=== PATIENT | male | born 1955 | race Caucasian/White ===

== ENCOUNTER 2023-04-28 18:40 | Inpatient (IN) | payer OTHER ==
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
[2023-04-28] MEDS ORDERED: LABETALOL 5 MG/ML VIAL MDV IVP STA ×2 (19:26→20:50)
[2023-04-28] MEDS ORDERED: SODIUM CHLORIDE 0.9% 500 ML 500 ML IV STA (19:26)
[2023-04-28] MEDS ORDERED: MORPHINE SULFATE 4 MG/ML SYRINGE IV STA (19:26)
[2023-04-28 20:03] LABS: Basophils # (A) 0.1 k/uL (0-0.2); Basophils % (A) 1 %; Eosinophils # (A) 0.2 k/uL (0-0.7); Eosinophils % (A) 2 %; HCT 44.1 % (39.0-53.0); HGB 14.7 gm/dL (13.0-17.5); Lymphocytes # (A) 1.7 k/uL (1.0-4.8); Lymphocytes % (A) 17 %; MCH 31.5 pg (25.0-35.0); MCHC 33.3 g/dL (31.0-37.0); MCV 94.5 fL (80.0-100.0); Mean Platelet Volume 8.1; Monocytes # (A) 0.6 k/uL (0-1.0); Monocytes % (A) 6 %; Neutrophils # (A) 7.3 k/uL (1.3-7.7); Neutrophils % (A) 73 %; Platelet Count 192 k/uL (150-450); RBC 4.66 m/uL (4.30-5.90)
[2023-04-28 20:14] LABS: ALT 23 U/L (4-49); AST 24 U/L (17-59); African American GFR (CKD) 17 (>60 ml/min/1.73 sqM); Albumin 4.3 g/dL (3.5-5.0); Alkaline Phosphatase 72 U/L (38-126); Anion Gap 13 mmol/L; Blood Urea Nitrogen 39 mg/dL (9-20); Calcium 9.4 mg/dL (8.4-10.2); Carbon Dioxide 21 mmol/L (22-30); Chloride 105 mmol/L (98-107); Glucose 87 mg/dL (74-99); Magnesium 2.3 mg/dL (1.6-2.3); Non-African American GFR(CKD) 15 (>60 ml/min/1.73 sqM); Phosphorus 3.3 mg/dL (2.5-4.5); Potassium 4.4 mmol/L (3.5-5.1); Sodium 139 mmol/L (137-145); Total Bilirubin 1.2 mg/dL (0.2-1.3); Total Protein 7.3 g/dL (6.3-8.2)
[2023-04-28 20:20] LABS: INR 0.9 (<1.2); Partial Thromboplastin Time 24.1 sec (22.0-30.0); Prothrombin Time 9.9 sec (10.0-12.5)
[2023-04-28 20:23] LABS: NT-Pro-B-Type Natriuretic Pept 1210 pg/mL
[2023-04-28] MEDS ORDERED: lisinopriL 10 MG TAB PO STA (20:50)
[2023-04-28] MEDS ORDERED: NALOXONE 0.4 MG/ML 1 ML VIAL IV PRN (20:51)
[2023-04-28] MEDS ORDERED: MORPHINE SULFATE 4 MG/ML SYRINGE IV PRN (20:51)
[2023-04-28] MEDS ORDERED: ONDANSETRON 4 MG/2 ML VIAL IVP PRN (20:51)
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
[2023-04-28] MEDS: SODIUM CHLORIDE 0.9% 1,000 ML IV SCH (21:19)
[2023-04-28] MEDS: METOPROLOL TARTRATE 50 MG TAB PO SCH (21:26)
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
[2023-04-28] MEDS ORDERED: hydrALAZINE HCL 20 MG/ML 1 ML VIAL IVP PRN (22:50)
[2023-04-29 00:25] LABS: Glucose,Whole Blood 82 mg/dL (70-110)
[2023-04-29] MEDS: METOPROLOL TARTRATE 50 MG TAB PO SCH ×2 (08:17→21:29)
[2023-04-29] MEDS ORDERED: lisinopriL 10 MG TAB PO SCH (09:00)
[2023-04-29] MEDS ORDERED: ACETAMINOPHEN TAB 325 MG TAB PO PRN (09:45)
[2023-04-29] MEDS ORDERED: MELATONIN 3 MG TABLET PO PRN (09:45)
[2023-04-29 10:47] LABS: Basophils % (A) 0 %; Eosinophils # (A) 0.4 k/uL (0-0.7); Eosinophils % (A) 4 %; HCT 40.9 % (39.0-53.0); HGB 13.4 gm/dL (13.0-17.5); Lymphocytes # (A) 1.7 k/uL (1.0-4.8); Lymphocytes % (A) 19 %; MCH 31.6 pg (25.0-35.0); MCHC 32.8 g/dL (31.0-37.0); MCV 96.4 fL (80.0-100.0); Mean Platelet Volume 7.9; Monocytes # (A) 0.6 k/uL (0-1.0); Monocytes % (A) 7 %; Neutrophils # (A) 6.2 k/uL (1.3-7.7); Neutrophils % (A) 68 %; Platelet Count 176 k/uL (150-450); RBC 4.24 m/uL (4.30-5.90); RDW 13.1 % (11.5-15.5); WBC 9.1 k/uL (3.8-10.6)
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
[2023-04-29 10:55] LABS: ALT 20 U/L (4-49); AST 20 U/L (17-59); African American GFR (CKD) 20 (>60 ml/min/1.73 sqM); Albumin 3.6 g/dL (3.5-5.0); Alkaline Phosphatase 62 U/L (38-126); Anion Gap 11 mmol/L; Blood Urea Nitrogen 40 mg/dL (9-20); Calcium 8.4 mg/dL (8.4-10.2); Carbon Dioxide 19 mmol/L (22-30); Chloride 106 mmol/L (98-107); Glucose 150 mg/dL (74-99); Magnesium 2.2 mg/dL (1.6-2.3); Non-African American GFR(CKD) 17 (>60 ml/min/1.73 sqM); Phosphorus 3.8 mg/dL (2.5-4.5); Potassium 3.9 mmol/L (3.5-5.1); Sodium 136 mmol/L (137-145); Total Bilirubin 0.8 mg/dL (0.2-1.3); Total Protein 6.4 g/dL (6.3-8.2)
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
[2023-04-29] MEDS: SODIUM CHLORIDE 0.9% 1,000 ML IV SCH ×2 (18:33→21:29)
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
[2023-04-29 18:55] LABS: Appearance,Urine Clear (Clear); Bilirubin,Urine Negative (Negative); Blood,Urine Negative (Negative); Color,Urine Colorless; Glucose,Urine (UA) 1+ (Negative); Ketones,Urine Negative (Negative); Leukocyte Esterase,Urine Negative (Negative); Nitrite,Urine Negative (Negative); Protein,Urine 1+ (Negative); RBC,Urine <1 /hpf (0-5); Specific Gravity,Urine 1.009 (1.001-1.035); Urobilinogen,Urine <2.0 mg/dL (<2.0); WBC,Urine <1 /hpf (0-5)
[2023-04-29 21:37] LABS: Glucose,Whole Blood 120 mg/dL (70-110)
[2023-04-30 05:51] LABS: Glucose,Whole Blood 99 mg/dL (70-110)
[2023-04-30 08:19] LABS: HCT 38.8 % (39.0-53.0); HGB 13.3 gm/dL (13.0-17.5); MCH 32.6 pg (25.0-35.0); MCHC 34.2 g/dL (31.0-37.0); MCV 95.5 fL (80.0-100.0); Mean Platelet Volume 8.2; Platelet Count 164 k/uL (150-450); RBC 4.06 m/uL (4.30-5.90); WBC 10.6 k/uL (3.8-10.6)
[2023-04-30] MEDS: METOPROLOL TARTRATE 50 MG TAB PO SCH (09:28)
[2023-04-30] MEDS: CHOLECALCIFEROL 25 MCG (1000 IU) TABLET PO SCH (09:28)
[2023-04-30] MEDS: ASPIRIN 81 MG PO SCH (09:28)
[2023-04-30] MEDS: MAGNESIUM OXIDE 400 MG TAB PO SCH (09:28)
[2023-04-30] MEDS: SODIUM CHLORIDE 0.9% 1,000 ML IV SCH ×2 (09:38→20:18)
[2023-04-30 10:42] LABS: African American GFR (CKD) 18 (>60 ml/min/1.73 sqM); Anion Gap 11 mmol/L; Blood Urea Nitrogen 40 mg/dL (9-20); Calcium 8.5 mg/dL (8.4-10.2); Carbon Dioxide 19 mmol/L (22-30); Chloride 108 mmol/L (98-107); Glucose 93 mg/dL (74-99); Non-African American GFR(CKD) 16 (>60 ml/min/1.73 sqM); Potassium 4.2 mmol/L (3.5-5.1); Sodium 138 mmol/L (137-145)
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
[2023-04-30 11:56] LABS: Glucose,Whole Blood 99 mg/dL (70-110)
--- NOTE | 2023-04-30 12:10 | CA ---
Transthoracic Echo Report Name: Aren Mckinney Age: 68 Gender: M : 1955 Exam Date: 04/29/2023 09:26 Exam Location: [facility] Ht (in): 70 Wt (lb): 200 Ordering Physician: Asher Patel DO Attending/Referring Phys: [id number], Jorge Careers Counsellor Zabrina Dunbar RDCS Procedure CPT: Indications: chf Cardiac Hx: Technical Quality: Fair Contrast 1: Total Dose (mL): Contrast 2: Total Dose (mL): MEASUREMENTS (Male / Female) Normal Values 2D ECHO LV Diastolic Diameter PLAX 4.4 cm 4.2 - 5.9 / 3.9 - 5.3 cm LV Systolic Diameter PLAX 2.9 cm IVS Diastolic Thickness 1.7 cm 0.6 - 1.0 / 0.6 - 0.9 cm LVPW Diastolic Thickness 1.5 cm 0.6 - 1.0 / 0.6 - 0.9 cm LV Relative Wall Thickness 0.7 RV Internal Dim ED PLAX 3.0 cm LA Volume 84.5 cm??? 18 - 58 / 22 - 52 cm??? LA Volume Index 39.6 cm???/m??? 16 - 28 cm???/m??? M-MODE Aortic Root Diameter MM 3.0 cm LA Systolic Diameter MM 5.3 cm LA Ao Ratio MM 1.8 AV Cusp Separation MM 1.8 cm DOPPLER AV Peak Velocity 115.3 cm/s AV Peak Gradient 5.3 mmHg AV Mean Velocity 85.8 cm/s AV Mean Gradient 3.3 mmHg AV Velocity Time Integral 21.2 cm LVOT Peak Velocity 105.4 cm/s LVOT Peak Gradient 4.4 mmHg LVOT Velocity Time Integral 19.1 cm MV Area PHT 4.0 cm??? Mitral E Point Velocity 96.7 cm/s Mitral A Point Velocity 80.0 cm/s Mitral E to A Ratio 1.2 MV Deceleration Time 191.9 ms MV E' Velocity 6.6 cm/s Mitral E to MV E' Ratio 14.7 TR Peak Velocity 189.3 cm/s TR Peak Gradient 14.3 mmHg Right Ventricular Systolic Press 18.7 mmHg FINDINGS Left Ventricle Moderately increased left ventricular wall thickness. Left ventricular cavity size normal. Normal left ventricular systolic function with no obvious regional wall motion abnormalities. Left ventricular ejection fraction is estimated at 55-60 %. Right Ventricle Normal right ventricular size and function. Right ventricular systolic pressure within normal limits. Right Atrium Normal right atrial size. Left Atrium Moderate left atrial dilatation Mitral Valve Structurally normal mitral valve. No mitral stenosis. Mild mitral regurgitation. Aortic Valve Trileaflet aortic valve. No aortic regurgitation. Thickened aortic valve without stenosis. Focal thickening of the aortic valve cusps. Tricuspid Valve Structurally normal tricuspid valve. Mild tricuspid regurgitation. Pulmonic Valve Structurally normal pulmonic valve. Trace pulmonic regurgitation. Pericardium No pericardial effusion. Aorta Normal size aortic root and proximal ascending aorta. CONCLUSIONS Left ventricular ejection fraction is estimated at 55-60 %. no obvious regional wall motion abnormalities. Moderately increased left ventricular wall thickness. Moderate left atrial dilatation Mild mitral regurgitation. Calcific Aortic sclerosis with thickened valve with no stenosis No prior echo within database to compare with Previewed by: Dr Blake Wiley (Electronically Signed) Final Date: 30 April 2023 12:09
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
--- NOTE | 2023-04-30 12:59 | XR ---
EXAMINATION TYPE: XR chest 2V DATE OF EXAM: 04/30/2023 12:55 PM CLINICAL INDICATION:Male, 68 years old with history of Shortness of breath; PHH COMPARISON: Chest radiographs from 04/28/2023 TECHNIQUE: XR chest 2V Frontal and lateral views of the chest. FINDINGS: Lungs/Pleura: There is no evidence of pleural effusion, focal consolidation, or pneumothorax. Pulmonary vascularity: Pulmonary vascular congestion. Heart/mediastinum: Cardiomediastinal silhouette is enlarged and stable. Musculoskeletal: No acute osseous pathology. IMPRESSION: Cardiomegaly and mild pulmonary vascular congestion. Correlate with BNP for congestive heart failure.
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
[2023-04-30 17:05] LABS: Glucose,Whole Blood 98 mg/dL (70-110)
[2023-04-30] MEDS: amLODIPine 5 MG TAB PO SCH (17:06)
[2023-04-30] MEDS: carvediloL 12.5 MG TAB PO SCH (17:06)
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
[2023-04-30 20:43] LABS: Glucose,Whole Blood 100 mg/dL (70-110)
[2023-05-01] MEDS: carvediloL 12.5 MG TAB PO SCH ×2 (06:14→17:00)
[2023-05-01 06:19] LABS: Glucose,Whole Blood 90 mg/dL (70-110)
[2023-05-01 08:23] LABS: HCT 40.9 % (39.0-53.0); HGB 13.5 gm/dL (13.0-17.5); MCH 31.2 pg (25.0-35.0); MCHC 32.9 g/dL (31.0-37.0); MCV 94.9 fL (80.0-100.0); Platelet Count 162 k/uL (150-450); RBC 4.31 m/uL (4.30-5.90); RDW 13.4 % (11.5-15.5); WBC 12.4 k/uL (3.8-10.6)
[2023-05-01 08:56] LABS: African American GFR (CKD) 20 (>60 ml/min/1.73 sqM); Anion Gap 13 mmol/L; Blood Urea Nitrogen 38 mg/dL (9-20); Carbon Dioxide 14 mmol/L (22-30); Chloride 108 mmol/L (98-107); Glucose 113 mg/dL (74-99); Non-African American GFR(CKD) 17 (>60 ml/min/1.73 sqM); Sodium 135 mmol/L (137-145)
[2023-05-01 08:59] LABS: Potassium 4.4 mmol/L (3.5-5.1)
[2023-05-01] MEDS: ASPIRIN 81 MG PO SCH (09:06)
[2023-05-01] MEDS: MAGNESIUM OXIDE 400 MG TAB PO SCH (09:06)
[2023-05-01] MEDS: CHOLECALCIFEROL 25 MCG (1000 IU) TABLET PO SCH (09:06)
[2023-05-01] MEDS: amLODIPine 5 MG TAB PO SCH ×2 (09:06→20:36)
[2023-05-01 11:18] LABS: Glucose,Whole Blood 112 mg/dL (70-110)
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
[2023-05-01] MEDS: FUROSEMIDE 10 MG/ML 4 ML VIAL IV STA ×2 (12:08→14:34)
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
[2023-05-01] MEDS ORDERED: FUROSEMIDE 10 MG/ML 4 ML VIAL ONE (14:33)
[2023-05-01 16:53] LABS: Glucose,Whole Blood 102 mg/dL (70-110)
[2023-05-01 20:12] LABS: Glucose,Whole Blood 102 mg/dL (70-110)
[2023-05-01] MEDS: SODIUM BICARBONATE TAB 650 MG TAB PO SCH (20:36)
[2023-05-02 06:06] LABS: Glucose,Whole Blood 128 mg/dL (70-110)
[2023-05-02] MEDS: carvediloL 12.5 MG TAB PO SCH (06:19)
[2023-05-02 08:38] VITALS: PULSE 72
[2023-05-02 08:58] LABS: HCT 41.2 % (39.0-53.0); HGB 14.1 gm/dL (13.0-17.5); MCH 32.1 pg (25.0-35.0); MCHC 34.2 g/dL (31.0-37.0); MCV 93.9 fL (80.0-100.0); Mean Platelet Volume 8.6; Platelet Count 167 k/uL (150-450); RBC 4.39 m/uL (4.30-5.90); RDW 13.3 % (11.5-15.5); WBC 9.9 k/uL (3.8-10.6)
[2023-05-02] MEDS: MAGNESIUM OXIDE 400 MG TAB PO SCH (09:09)
[2023-05-02] MEDS: SODIUM BICARBONATE TAB 650 MG TAB PO SCH (09:09)
[2023-05-02] MEDS: amLODIPine 5 MG TAB PO SCH (09:09)
[2023-05-02] MEDS: CHOLECALCIFEROL 25 MCG (1000 IU) TABLET PO SCH (09:09)
[2023-05-02] MEDS: ASPIRIN 81 MG PO SCH (09:09)
[2023-05-02 09:13] LABS: African American GFR (CKD) 18 (>60 ml/min/1.73 sqM); Anion Gap 13 mmol/L; Blood Urea Nitrogen 47 mg/dL (9-20); Carbon Dioxide 20 mmol/L (22-30); Chloride 105 mmol/L (98-107); Glucose 115 mg/dL (74-99); Non-African American GFR(CKD) 15 (>60 ml/min/1.73 sqM); Potassium 3.9 mmol/L (3.5-5.1); Sodium 138 mmol/L (137-145)
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
[2023-05-02 11:41] LABS: Glucose,Whole Blood 92 mg/dL (70-110)
[2023-05-02 11:57] VITALS: BP 163/101; RESP 16; TEMP 98.2
== END 2023-05-02 13:47 | disposition home or self-care (01) | DRG 683 ==
LOC: EC 18:40 → 3SCARD 20:51
PROVIDERS: ADMIT Hospitalist; ATTEND Hospitalist
DX: N17.9 Acute kidney failure, unspecified (principal); E87.20 Acidosis, unspecified; I16.1 Hypertensive emergency; I13.0 Hypertensive heart and chronic kidney disease with heart failure and stage 1 through stage 4 chronic kidney disease, or unspecified chronic kidney disease; I50.9 Heart failure, unspecified; M54.9 Dorsalgia, unspecified; N18.9 Chronic kidney disease, unspecified; Z79.82 Long term (current) use of aspirin; S09.90XA Unspecified injury of head, initial encounter; R07.89 Other chest pain; M25.519 Pain in unspecified shoulder; V47.6XXA Car passenger injured in collision with fixed or stationary object in traffic accident, initial encounter; Z28.310 Unvaccinated for COVID-19; Z28.21 Immunization not carried out because of patient refusal; Z98.61 Coronary angioplasty status
CPT/HCPCS: 36415; 70450; 71045; 71046; 72125; 76770; 80048; 80053; 81001; 83036; 83605; 83735; 83880; 84100; 84484; 85025; 85027; 85610; 85730; 93306; 94760; 96361; 96374; 96375; 96376; 99291

== ENCOUNTER → 2023-05-12 | Outpatient (CLI) | payer OTHER ==
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
== END | disposition home or self-care (01) ==
LOC: RADUSWWP 16:23
PROVIDERS: ATTEND Emergency Medicine
DX: S80.12XA Contusion of left lower leg, initial encounter (principal); X58.XXXA Exposure to other specified factors, initial encounter

== ENCOUNTER → 2023-05-29 | Outpatient (CLI) | payer OTHER ==
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
== END | disposition home or self-care (01) ==
LOC: RADMRIMAIN 20:45
PROVIDERS: ATTEND Emergency Medicine
DX: F07.81 Postconcussional syndrome (principal); S13.4XXA Sprain of ligaments of cervical spine, initial encounter; S80.12XA Contusion of left lower leg, initial encounter; G93.89 Other specified disorders of brain; M50.30 Other cervical disc degeneration, unspecified cervical region; M47.812 Spondylosis without myelopathy or radiculopathy, cervical region; R13.10 Dysphagia, unspecified; V89.2XXA Person injured in unspecified motor-vehicle accident, traffic, initial encounter
CPT/HCPCS: 70551; 72141

== ENCOUNTER → 2023-06-13 | Outpatient (CLI) | payer OTHER, MEDICARE ==
[2023-06-14 02:12] LABS: HCT 42.9 % (39.6-50.0); MCH 30.8 pg (27.0-32.0); MCHC 32.6 g/dL (32.0-37.0); MCV 94.5 FL (80.0-97.0); Mean Platelet Volume 10.2 FL (9.5-12.2); NRBC Per 100 WBC 0 X 10*3/uL (0.00-0.01); Platelet Count 228 X 10*3/uL (140-440); RBC 4.54 X 10*6/uL (4.40-5.60); RDW 12.7 % (11.5-14.5); WBC 8.31 X 10*3/uL (4.50-10.00)
[2023-06-14 02:28] LABS: Albumin 4.6 g/dL (3.8-4.9); Immunoglobulin M 67.6 mg/dL (40.0-280.0); Protein, Total 7.4 g/dL (6.2-8.2)
[2023-06-14 02:30] LABS: Hepatitis A Antibody IgM Nonreactive; Hepatitis B Core IgM Nonreactive; Hepatitis B Surface Antigen Nonreactive; Hepatitis C IgG Antibody Nonreactive
[2023-06-14 02:57] LABS: % Iron Saturation 20.62 (15.00-50.00); BUN/Creat Ratio 12.59 Ratio (12.00-20.00); Blood Urea Nitrogen 51.6 mg/dL (9.0-27.0); Carbon Dioxide 20.7 mmol/L (21.6-31.8); Chloride 104 mmol/L (96-109); Glucose 98 mg/dL (70-110); Iron 67 UG/DL (65-175); Magnesium 2.3 mg/dL (1.5-2.4); Phosphorus 4.8 mg/dL (2.4-5.1); Potassium 5.1 mmol/L (3.5-5.5); Sodium 141 mmol/L (135-145); Total Iron Binding Capacity 325 UG/DL (228-460)
[2023-06-14 14:10] LABS: Free Kappa Lt Chain Qnt, Serum 8.11 mg/dL (0.33-1.94)
[2023-06-14 17:01] LABS: Gamma Globulin 1.06 g/dL (0.70-1.50)
== END | disposition home or self-care (01) ==
LOC: LABWHC1 15:38
PROVIDERS: ATTEND Family Medicine
DX: N25.81 Secondary hyperparathyroidism of renal origin (principal); N17.9 Acute kidney failure, unspecified; E55.9 Vitamin D deficiency, unspecified; D64.9 Anemia, unspecified; N39.0 Urinary tract infection, site not specified; R80.9 Proteinuria, unspecified; R53.83 Other fatigue
CPT/HCPCS: 36415; 80048; 80074; 82306; 82728; 83516; 83540; 83550; 83735; 83883; 83970; 84100; 84165; 84443; 85027; 86038; 86160; 86162; 86225; 86255; 86334

== ENCOUNTER → 2024-04-25 | Outpatient (CLI) | payer MEDICARE ==
--- NOTE | 2024-04-25 11:27 | MR ---
EXAMINATION TYPE: MR lumbar spine wo con DATE OF EXAM: 04/25/2024 COMPARISON: NONE HISTORY: Left leg pain/weakness TECHNIQUE: T1 and T2 axial and sagittal images of the lumbar spine are submitted. FINDINGS: There is no abnormal signal seen within the visualized spinal cord or paraspinal soft tissu es. At L1-2 there is disc desiccation. Mild circumferential disc bulging but no focal herniation or canal stenosis. Neural foramina remain patent. Mild degenerative disc disease. At L2-3 there is mild degenerative disc disease with circumferential disc bulging greater laterally t o the left with mild left foraminal encroachment. Lateral small protrusion not excluded. No canal gladis nosis. At L3-4 there is mild degenerative disc disease with diffuse disc bulging. Hypertrophy of the facet j oints. Borderline central stenosis with mild bilateral foraminal encroachment greater on the left. Gr carie 1 retrolisthesis. At L4-5 there is degenerative disc disease. There is broad-based disc protrusion. Mild effacement of thecal sac. Hypertrophy of the facet joints and ligamentum flavum contribute to borderline to mild ce ntral stenosis and mild bilateral foraminal encroachment. At L5-S1 there is severe degenerative disc disease with grade 1 retrolisthesis. There is no disc boris iation or canal stenosis. Posterior disc osteophyte complex with mild bilateral foraminal protrusion. IMPRESSION: 1. Multilevel degenerative disc disease with severe changes L5-S1 resulting in mild bilateral foramin al encroachment. Broad-based posterior disc osteophyte complex. 2. Broad-based disc protrusion at L4-L5 with borderline to mild central stenosis and mild bilateral f oraminal quadrant. 3. Borderline Central stenosis L3-L4 due to disc bulging and grade 1 retrolisthesis. 4. Disc bulging L2-L3 with a greater left lateral component or small protrusion resulting in mild lef t foraminal encroachment. [facility], , 04/25/2024 11:25 AM
== END | disposition home or self-care (01) ==
LOC: RADMRIMAIN 10:24
PROVIDERS: ATTEND Family Medicine
CPT/HCPCS: 72148